=== PATIENT | male | born 1935 | race Caucasian/White ===

== ENCOUNTER 2021-08-28 20:45 | Inpatient (IN) | payer MEDICARE, OTHER ==
[~2021-08-28] VITALS: Ht 180.3 cm; Wt 90.7 kg
--- NOTE | 2021-08-28 21:34 | NUR ---
PATIENT COORDINATOR FRONT DESK AT PT'S BEDSIDE
--- NOTE | 2021-08-28 21:50 | NUR ---
ANGELIQUE FROM A BOARD AND CARE. TO ER BED 10. PT IS AAOX3, NOT IN RESP DISTRESS. BROUGHT IN FOR BEING AGITATED. INCREASE IN CONFUSION AND REFUSING CARE. PT IS SENT TO GPS ADMISSION. PT IS MEDICAL CLEARANCE AND PSYCH EVAL. URINE COLLECTED AND SENT TO LAB.
[2021-08-28 22:10] LABS: HEMATOCRIT 33 % (39-51); HEMOGLOBIN 10.4 g/dL (13.5-17.5); LYMPHOCYTES # (AUTO) 1.3 K/uL (0.8-4.8); MEAN CORPUSCULAR HGB CONC 32 g/dl (31.0-36.0); MEAN CORPUSCULAR VOLUME 84 fL (80-96); MONOCYTES # (AUTO) 0.6 K/uL (0.1-1.30); MONOCYTES % (AUTO) 6.3 % (2.0-12.0); NEUTROPHILS # (AUTO) 8.1 K/uL (1.8-8.9); NEUTROPHILS % (AUTO) 80.7 % (43.0-81.0); PLATELET COUNT (AUTO) 181 K/uL (150-450); RED BLOOD CELL COUNT(AUTO) 3.89 MIL/uL (4.5-6.0); WHITE BLOOD COUNT (AUTO) 10.1 K/uL (4.3-11.0)
[2021-08-28 22:29] LABS: BILIRUBIN,URINE NEGATIVE (NEGATIVE); COLOR,URINE YELLOW (YELLOW); LEUKOCYTE ESTERASE ,URINE NEGATIVE (NEGATIVE); NITRITE, URINE NEGATIVE (NEGATIVE); PH,URINE 5.5 (5.0-8.0); PROTEIN,URINE NEGATIVE (NEGATIVE); UGLUCOSE >=1000 mg/dL (NEGATIVE); UROBILINOGEN,URINE 0.2 EU/dL (0.2)
[2021-08-28 22:46] LABS: BACTERIA,URINE Rare /HPF (None Seen); RBC,URINE NONE SEEN /HPF (0-2); WBC,URINE NONE SEEN /HPF (0-3)
[2021-08-28 22:47] LABS: SQUAMOUS EPITHELIAL CELL,UR None Seen /HPF (None Seen)
--- NOTE | 2021-08-28 22:52 | NUR ---
PHARMACY STOCK CLERK AT PT'S BEDSIDE
--- NOTE | 2021-08-28 23:02 | NUR ---
COVID ANTIGEN SWAB COLLECTED AND SENT TO LAB
[2021-08-28 23:47] LABS: ALANINE AMINOTRANSFERASE 18 U/L (12-78); ALBUMIN 2.9 g/dL (3.4-5.0); ALCOHOL, BLOOD < 3 mg/dL (0-0); ALKALINE PHOSPHATASE 72 U/L (46-116); ASPARTATE AMINOTRANSFERASE 4 U/L (15-37); BILIRUBIN,DIRECT 0.1 mg/dL (0.0-0.2); BILIRUBIN,TOTAL 0.2 mg/dL (0.2-1.0); CARBON DIOXIDE 28 mmol/L (21-32); CHLORIDE 105 mmol/L (98-107); CREATININE 1.2 mg/dL (0.6-1.3); GLUCOSE 205 mg/dL (74-106); POTASSIUM 4.8 mmol/L (3.5-5.1); SODIUM SERUM 137 mmol/L (136-145); UREA NITROGEN, BLOOD 43 mg/dL (7-18)
[2021-08-29 00:09] LABS: ACETAMINOPHEN < 2 ug/ml (10-30)
--- NOTE | 2021-08-29 00:41 | NUR ---
PT SEEN BY ART CRISIS TEAM
[2021-08-29 01:43] LABS: CALCIUM, SERUM 8.8 mg/dL (8.5-10.1)
--- NOTE | 2021-08-29 03:05 | NUR ---
REPORT GIVEN TO BAMBI CANCINO RN FOR RUBÉN
[2021-08-29] MEDS ORDERED: PANT40TA49 PO (03:19)
[2021-08-29] MEDS ORDERED: ATOR40TA PO (03:19)
[2021-08-29] MEDS ORDERED: DOCU100C36 PO (03:19)
[2021-08-29] MEDS ORDERED: PRED20TA PO (03:19)
[2021-08-29] MEDS ORDERED: ACET325C7 PO (03:19)
[2021-08-29] MEDS ORDERED: ASPI-1169 PO (03:19)
[2021-08-29] MEDS ORDERED: APIX5TAB PO (03:19)
[2021-08-29] MEDS ORDERED: INSU100V39 SQ (03:19)
[2021-08-29] MEDS ORDERED: IPRA0.2S49 IH (03:19)
[2021-08-29] MEDS ORDERED: BUDE0.5A4 IH (03:19)
[2021-08-29] MEDS ORDERED: ALBU2.5V13 IH (03:19)
--- NOTE | 2021-08-29 04:11 | NUR ---
PT TRANSFERRED TO GPS 213 VIA HOSPITAL PROTOCOL. ALL BELONGINGS GIVEN TO GPS RN
--- NOTE | 2021-08-29 04:15 | NUR ---
GPS ADMISSION NOTE, RECEIVED PATIENT FROM [facility] / [facility]. PATIENT ARRIVED ON THIS UNIT AT 0415 VIA STRETCHER WITH 1 RN ESCORT. PATIENT ADMITTED ON A 5150 HOLD FOR GD. PER HOLD PATIENT WAS BROUGHT IN TO OUR E.R. FROM [facility] DUE TO AGGRESSIVE AND COMBATIVE BEHAVIOR. PATIENT HAS BEEN NON COMPLIANT WITH CARE. PATIENT IS DISORIENTED, DISORGANIZED, CONFUSED, AND HAS POOR IMPULSE CONTROL. PATIENT IS UNABLE TO PROVIDE FOR HIS FOOD, PRISON, OR CLOTHING DUE TO A MENTAL DISORDER. [facility] IS UNABLE TO PROVIDE THE SAME DUE TO HIS BEHAVIOR. THE 5150 WAS REVIEWED AND THE DOCUMENTATION IN THE 5150 HOLD APPEARS TO REFLECT THE PRESENTATION OF THE PATIENT. UPON FACE TO FACE ASSESSMENT PATIENT IS NOTED TO BEING, CONFUSED, DISHEVELED, DISORGANIZED, COOPERATIVE, AND NEEDS REDIRECTION. PATIENT IS CURRENTLY LYING IN BED AWAKE, HAS NO S/S OR COMPLAINTS OF PAIN. PATIENT IS DISPLAYING NO S/S OF APPARENT DISTRESS. PATIENT BREATHING IS UNLABORED WITH EQUAL RISE AND FALL OF THE CHEST. PATIENT IS ALERT AND ORIENTATED X 1-2 ON ROOM AIR. PATIENT ASSISTED WITH TURING AND REPOSITIONING Q2HR AND PRN FOR COMFORT AND CIRCULATION. PATIENT HAS NO NEEDS AT THIS TIME. PATIENT DENIES SUICIDE IDEATIONS AND HOMICIDAL IDEATIONS AT THIS TIME. PATIENT REFUSED TO SIGNS ANY PAPER WORK AND THINKS THIS IS ALL A MISTAKE. PATIENT ADVISED OF HIS HOLD AND PATIENT RIGHTS BOOKLET GIVEN. PATIENT IS UNDER THE PSYCHIATRIC CARE OF DR. MCKEON AND THE MEDICAL CARE OF DR JACOBO. PATIENT BELONGINGS WERE INVENTORIED AND CHECKED FOR CONTRABAND. ALL CONTRABAND REMOVED AND STORED IN PATIENT HALLWAY LOCKER. PATIENT ADVANCED DIRECTIVES PREFERENCE, IMMUNIZATIONS QUESTIONER, NECESSARY PAPERWORK COMPLETED. PATIENT REFUSED SKIN ASSESSMENT. PATIENT ORIENTATED TO ROOM, FLOOR, AND STAFF WITH ALL QUESTIONS ANSWERED. PATIENT EDUCATED ON THE USE OF THE CALL HAMMONDS. PATIENT BED SIDE RAILS ARE UP X 2 FOR SAFETY. PATIENT BED IS LOCKED, LOW AND I WILL CONTINUE TO MONITOR THIS PATIENT Q 15 MIN WITH THE HELP OF STAFF TO MAINTAIN SAFETY.
[2021-08-29] MEDS ORDERED: LORAZEPAM 0.5 MG TABLET PO PRN (04:30)
[2021-08-29] MEDS ORDERED: ACETAMINOPHEN 325 MG TABLET PO PRN (04:30)
[2021-08-29] MEDS ORDERED: MAG HYDROX/AL HYDROX/SIMETH 30 ML UDC PO PRN (04:30)
[2021-08-29] MEDS ORDERED: MAGNESIUM HYDROXIDE 30 ML UDC PO PRN (04:30)
--- NOTE | 2021-08-29 04:46 | NUR ---
GPS RN NOTE, PATIENT NEEDS A MEDICATION RECONCILIATION AND AN ACCU CHECK ORDER. PAGED [facility] AND INFORMED CASSIDY JACOBO DNP OF MY FINDINGS. CASSIDY JACOBO DNP SAID SHE WILL DO THE MED RECON AND ACCU CHECK ORDER WHEN SHE HAS A MOMENT. ALL ORDERS NOTED AND CARRIED OUT. WILL CONTINUE TO MONITOR THIS PATIENT WITH THE HELP OF STAFF.
[2021-08-29 04:54] VITALS: BP 149/80
[2021-08-29] MEDS ORDERED: BLOOD SUGAR DIAGNOSTIC 1 EACH STRIP IN ONE (05:00)
[2021-08-29 05:42] VITALS: BP 149/80
--- NOTE | 2021-08-29 06:41 | NUR ---
GPS RN NOTE, ATTEMPTED TO NOTIFY AND LEFT MESSAGE FOR MARJORIE CHONG [phone] TO CALL BACK. MARJORIE CHONG IS PATIENT SPOUSE AND PERSON TO BE NOTIFIED OF ADMISSION. WILL CONTINUE TO MONITOR PATIENT WITH THE HELP OF STAFF.
[2021-08-29] MEDS ORDERED: BLOOD SUGAR DIAGNOSTIC 1 EACH STRIP IN SCH ×3 (07:30→15:00)
[2021-08-29 08:00] VITALS: BP 144/68
[2021-08-29] MEDS: BLOOD SUGAR DIAGNOSTIC 1 EACH STRIP IN SCH ×4 (08:00→22:05)
[2021-08-29] MEDS ORDERED: DEXTROSE 50%-WATER 50 ML DISP.SYRIN IV PRN ×2 (09:30→15:00)
--- NOTE | 2021-08-29 09:42 | NUR ---
RN-NOTES ACCU CHECK WAS DONE EARLIER.
[2021-08-29] MEDS: INSULIN REGULAR, HUMAN 100 UNIT/ML 3 ML VIAL SQ PRN ×2 (09:58→13:53)
--- NOTE | 2021-08-29 10:41 | NUR ---
HOWIE Initial Discharge Plan: Patient currently resides at [facility] located at [address] [place] [address]; ([phone]). Pt would want to return back. Pt does not have any supportive contact at this time. HOWIE will work with the MD and treatment team to help coordinate appropriate discharge.
--- NOTE | 2021-08-29 10:42 | NUR ---
SW Family Contact: Pt does not have any supportive contact at this time.
--- NOTE | 2021-08-29 10:54 | NUR ---
SNF Contact: SW contacted [facility] ([phone]) and spoke with Kylah ([phone]) who stated that pt will be discharged to their sister facility [facility].
[2021-08-29] MEDS ORDERED: DOCUSATE SODIUM 100 MG CAPSULE PO SCH (15:00)
[2021-08-29] MEDS ORDERED: INSULIN REGULAR, HUMAN 100 UNIT/ML 3 ML VIAL SQ PRN (15:00)
[2021-08-29 16:00] VITALS: BP 120/61
[2021-08-29] MEDS: APIXABAN 5 MG TABLET PO SCH (17:33)
[2021-08-29 20:08] VITALS: BP 136/77
[2021-08-29] MEDS: ATORVASTATIN 40 MG TABLET PO SCH (22:31)
[2021-08-29] MEDS: DIVALPROEX SODIUM 250 MG TABLET.DR PO SCH (22:31)
[2021-08-29] MEDS: RIVASTIGMINE TARTRATE 1.5 MG CAPSULE PO SCH (22:31)
[2021-08-29] MEDS: TEMAZEPAM 7.5 MG CAPSULE PO PRN (22:56)
--- NOTE | 2021-08-29 22:57 | NUR ---
GPS RN NOTES: PATIENT REQUESTED FOR SLEEP MEDICATION. RESTORIL 7.5MG ADMINISTERED AT 2256. WILL CONTINUE TO MONITOR.
[2021-08-30] MEDS: BLOOD SUGAR DIAGNOSTIC 1 EACH STRIP IN SCH ×4 (07:45→21:33)
[2021-08-30 07:57] LABS: BASOPHILS % (AUTO) 0.4 % (0.0-2.0); EOSINOPHILS % (AUTO) 2.5 % (0.0-6.0); HEMATOCRIT 34 % (39-51); HEMOGLOBIN 10.8 g/dL (13.5-17.5); LYMPHOCYTES # (AUTO) 1.9 K/uL (0.8-4.8); LYMPHOCYTES % (AUTO) 25.9 % (20.0-44.0); MEAN CORPUSCULAR HGB CONC 32 g/dl (31.0-36.0); MEAN CORPUSCULAR VOLUME 83 fL (80-96); MONOCYTES # (AUTO) 0.5 K/uL (0.1-1.30); MONOCYTES % (AUTO) 7.1 % (2.0-12.0); NEUTROPHILS # (AUTO) 4.7 K/uL (1.8-8.9); NEUTROPHILS % (AUTO) 64.1 % (43.0-81.0); PLATELET COUNT (AUTO) 195 K/uL (150-450); RED BLOOD CELL COUNT(AUTO) 4.05 MIL/uL (4.5-6.0); WHITE BLOOD COUNT (AUTO) 7.3 K/uL (4.3-11.0)
[2021-08-30] MEDS: BUDESONIDE RESPULE INH 0.5 MG/2 ML AMPUL.NEB IH SCH ×2 (07:58→20:08)
[2021-08-30 08:00] VITALS: BP 121/66
[2021-08-30] MEDS: INSULIN REGULAR, HUMAN 100 UNIT/ML 3 ML VIAL SQ PRN ×4 (08:48→21:40)
[2021-08-30] MEDS: PANTOPRAZOLE 40 MG TABLET.DR PO SCH (09:03)
[2021-08-30] MEDS: ASPIRIN 81 MG TAB.CHEW PO SCH (09:04)
[2021-08-30] MEDS: DIVALPROEX SODIUM 250 MG TABLET.DR PO SCH ×2 (09:09→21:34)
[2021-08-30] MEDS: predniSONE 20 MG TABLET PO SCH (09:10)
[2021-08-30] MEDS: APIXABAN 5 MG TABLET PO SCH ×2 (09:11→17:02)
[2021-08-30] MEDS: RIVASTIGMINE TARTRATE 1.5 MG CAPSULE PO SCH ×2 (10:33→21:34)
[2021-08-30] MEDS: IPRATROPIUM NEB FS 0.5 MG/2.5 ML AMPUL.NEB IH SCH (11:41)
[2021-08-30] MEDS: ALBUTEROL FS 2.5 MG/0.5 ML VIAL.NEB IH SCH (11:42)
[2021-08-30 12:28] LABS: CALCIUM, SERUM 8.5 mg/dL (8.5-10.1); CREATININE 0.9 mg/dL (0.6-1.3); POTASSIUM 4.4 mmol/L (3.5-5.1)
[2021-08-30 16:00] VITALS: BP 111/91
--- NOTE | 2021-08-30 19:30 | NUR ---
GPS RN NOTE, RECEIVED PATIENT AWAKE AND IN BED, NO S/S OR COMPLAINTS OF PAIN AT THIS TIME. PATIENT IS DISPLAYING NO S/S OF APPARENT DISTRESS AT THIS TIME. PATIENT BREATHING IS UNLABORED WITH EQUAL RISE AND FALL OF THE CHEST. PATIENT IS ALERT AND ORIENTED X 1-2 ON ROOM AIR WITH A SPO2 95%. PATIENT IS COMPLIANT WITH MEDICATIONS, CALM, MAKES NEEDS KNOWN, AND COOPERATIVE. PATIENT DENIES SUICIDAL AND HOMICIDAL IDEATIONS AT THIS TIME. PATIENT ASSISTED WITH TURNING AND REPOSITIONING Q2HR AND PRN FOR COMFORT AND CIRCULATION. PATIENT HAS NO NEEDS AT THIS TIME. PATIENT EDUCATED ON THE USE OF THE CALL HAMMONDS. PATIENT BED SIDE RAILS UP X 2 FOR SAFETY. PATIENT BED IS LOCKED, LOW, WITH BED ALARM ON. WILL CONTINUE TO MONITOR THIS PATIENT Q15 MINUTES WITH THE HELP OF STAFF TO MAINTAIN SAFETY.
[2021-08-30 20:00] VITALS: BP 134/83
--- NOTE | 2021-08-30 21:32 | NUR ---
GPS RN NOTE, PERFORMED ACCU CHECK ON PATIENT WITH A BLOOD SUGAR RESULT OF 211. GAVE 4 UNITS OF REGULAR INSULIN PER SLIDING SCALE. GAVE SNAKE AND MILK. WILL CONTINUE TO MONITOR THIS PATIENT WITH THE HELP OF STAFF.
[2021-08-30] MEDS: ATORVASTATIN 40 MG TABLET PO SCH (21:34)
[2021-08-30] MEDS: TEMAZEPAM 7.5 MG CAPSULE PO PRN (23:15)
--- NOTE | 2021-08-30 23:15 | NUR ---
GPS RN NOTE, PATIENT HAS A COMPLAINT OF NOT BEING ABLE TO SLEEP AND IS REQUESTING RESTORIL AT THIS TIME. PATIENT VITAL SIGNS ARE STABLE. GAVE RESTORIL 7.5MG PO HS PRN ORDERED. WILL REASSESS FOR INSOMNIA AND I WILL CONTINUE TO MONITOR THIS PATIENT WITH THE HELP OF STAFF.
[2021-08-31] MEDS: BUDESONIDE RESPULE INH 0.5 MG/2 ML AMPUL.NEB IH SCH ×2 (07:39→20:18)
[2021-08-31] MEDS: ALBUTEROL FS 2.5 MG/0.5 ML VIAL.NEB IH SCH (07:39)
[2021-08-31] MEDS: IPRATROPIUM NEB FS 0.5 MG/2.5 ML AMPUL.NEB IH SCH (07:39)
[2021-08-31 08:00] VITALS: BP 149/79
[2021-08-31] MEDS: BLOOD SUGAR DIAGNOSTIC 1 EACH STRIP IN SCH ×4 (08:03→21:00)
[2021-08-31] MEDS: INSULIN REGULAR, HUMAN 100 UNIT/ML 3 ML VIAL SQ PRN ×4 (08:05→21:09)
[2021-08-31] MEDS: predniSONE 20 MG TABLET PO SCH (08:06)
[2021-08-31] MEDS: ASPIRIN 81 MG TAB.CHEW PO SCH (08:07)
[2021-08-31] MEDS: DIVALPROEX SODIUM 250 MG TABLET.DR PO SCH ×2 (08:07→20:56)
[2021-08-31] MEDS: PANTOPRAZOLE 40 MG TABLET.DR PO SCH (08:08)
[2021-08-31] MEDS: APIXABAN 5 MG TABLET PO SCH ×2 (08:08→16:55)
--- NOTE | 2021-08-31 10:04 | NUR ---
rn-co: tried to contact family member/responsible green party but in the pt the phone number in [phone]. Pt cannot recall any responsible green party.
[2021-08-31] MEDS: RIVASTIGMINE TARTRATE 1.5 MG CAPSULE PO SCH ×2 (10:13→21:00)
[2021-08-31 16:00] VITALS: BP 126/64
[2021-08-31 19:51] VITALS: BP 136/68
[2021-08-31] MEDS: ATORVASTATIN 40 MG TABLET PO SCH (21:00)
[2021-09-01] MEDS: TEMAZEPAM 7.5 MG CAPSULE PO PRN ×2 (00:59→22:14)
--- NOTE | 2021-09-01 01:05 | NUR ---
GPS RN NOTES PATIENT REFUSED SCHEDULED BREATHING TX WITH RT EARLIER TODAY BUT CURRENTLY REQUESTING A BREATHING TX NOW DUE TO SLIGHT SOB; PAGED RT, CHARGE NURSE AWARE; AWAITING RT ARRIVAL TO UNIT FOR ADMINISTRATION OF BREATHING TX, WILL CONT TO MONITOR
[2021-09-01] MEDS: ALBUTEROL FS 2.5 MG/0.5 ML VIAL.NEB IH SCH ×2 (01:20→22:07)
[2021-09-01] MEDS: BLOOD SUGAR DIAGNOSTIC 1 EACH STRIP IN SCH ×4 (07:43→21:21)
[2021-09-01 08:00] VITALS: BP 152/69
[2021-09-01] MEDS: BUDESONIDE RESPULE INH 0.5 MG/2 ML AMPUL.NEB IH SCH ×2 (09:00→21:48)
--- NOTE | 2021-09-01 09:01 | NUR ---
SNF Referral: HOWIE sent clinicals to Elijah from [facility] ([phone]) for placement option. HOWIE sent H & P, progress notes, and medication list.
[2021-09-01] MEDS: RIVASTIGMINE TARTRATE 1.5 MG CAPSULE PO SCH ×2 (09:21→21:22)
[2021-09-01] MEDS: PANTOPRAZOLE 40 MG TABLET.DR PO SCH (09:21)
[2021-09-01] MEDS: DIVALPROEX SODIUM 250 MG TABLET.DR PO SCH ×2 (09:21→21:14)
[2021-09-01] MEDS: predniSONE 20 MG TABLET PO SCH (09:22)
[2021-09-01] MEDS: ASPIRIN 81 MG TAB.CHEW PO SCH (09:22)
[2021-09-01] MEDS: APIXABAN 5 MG TABLET PO SCH ×2 (09:24→16:34)
[2021-09-01] MEDS: INSULIN REGULAR, HUMAN 100 UNIT/ML 3 ML VIAL SQ PRN ×3 (11:58→21:34)
[2021-09-01 16:00] VITALS: BP 138/62
[2021-09-01 20:20] VITALS: BP 149/82
[2021-09-01 20:36] VITALS: BP 164/85
[2021-09-01] MEDS: ATORVASTATIN 40 MG TABLET PO SCH (21:15)
--- NOTE | 2021-09-01 21:34 | NUR ---
PATIENT'S BLOOD GLUCOSE LEVEL IS 230 MG/DL, 4 UNITS PER SLIDING SCALE PROTOCOL GIVEN. PATIENT HAD SNACK AND TOLERATED WELL. WILL CONTINUE TO MONITOR.
--- NOTE | 2021-09-01 21:38 | NUR ---
PATIENT HAS BREATHING TREATMENT DUE AT 2100, PATIENT IS AWAKE AND WANTS BREATHING TX. CALLED RT AND INFORMED ELLIE.
--- NOTE | 2021-09-01 21:52 | NUR ---
RT IS AT BEDSIDE TO GIVE BREATHING TREATMENT.
[2021-09-01] MEDS: IPRATROPIUM NEB FS 0.5 MG/2.5 ML AMPUL.NEB IH SCH (22:07)
--- NOTE | 2021-09-01 22:16 | NUR ---
GPS RN NOTE: INSOMNIA PATIENT VERBALIZED INABILITY TO SLEEP AND REQUESTED TO TAKE SLEEPING MEDICINE. PRN RESTORIL 7.5 MG 1 CAP PO ADMINISTERED. WILL CONTINUE TO MONITOR.
[2021-09-02] MEDS: BLOOD SUGAR DIAGNOSTIC 1 EACH STRIP IN SCH ×4 (07:03→21:27)
[2021-09-02] MEDS: INSULIN REGULAR, HUMAN 100 UNIT/ML 3 ML VIAL SQ PRN ×4 (07:39→21:43)
[2021-09-02 08:00] VITALS: BP 154/70
[2021-09-02] MEDS: PANTOPRAZOLE 40 MG TABLET.DR PO SCH (08:32)
[2021-09-02] MEDS: ASPIRIN 81 MG TAB.CHEW PO SCH (08:32)
[2021-09-02] MEDS: DIVALPROEX SODIUM 250 MG TABLET.DR PO SCH ×2 (08:32→21:19)
[2021-09-02] MEDS: APIXABAN 5 MG TABLET PO SCH ×2 (08:32→16:39)
[2021-09-02] MEDS: RIVASTIGMINE TARTRATE 1.5 MG CAPSULE PO SCH ×2 (09:36→21:27)
[2021-09-02] MEDS: predniSONE 20 MG TABLET PO SCH (09:36)
[2021-09-02] MEDS: BUDESONIDE RESPULE INH 0.5 MG/2 ML AMPUL.NEB IH SCH ×2 (09:56→20:23)
[2021-09-02 16:00] VITALS: BP 137/59
[2021-09-02 19:56] VITALS: BP 153/81
[2021-09-02] MEDS: ALBUTEROL FS 2.5 MG/0.5 ML VIAL.NEB IH SCH (20:24)
[2021-09-02] MEDS: ATORVASTATIN 40 MG TABLET PO SCH (21:27)
[2021-09-02] MEDS: TEMAZEPAM 7.5 MG CAPSULE PO PRN (22:02)
[2021-09-03] MEDS: INSULIN REGULAR, HUMAN 100 UNIT/ML 3 ML VIAL SQ PRN ×4 (07:54→21:36)
[2021-09-03] MEDS: BLOOD SUGAR DIAGNOSTIC 1 EACH STRIP IN SCH ×4 (07:55→21:29)
[2021-09-03 08:00] VITALS: BP 141/90
--- NOTE | 2021-09-03 08:43 | NUR ---
Court Hearing Notification: Pt does not have any supportive contact to notify for 5250 hearing.
[2021-09-03] MEDS: IPRATROPIUM NEB FS 0.5 MG/2.5 ML AMPUL.NEB IH SCH (08:52)
[2021-09-03] MEDS: BUDESONIDE RESPULE INH 0.5 MG/2 ML AMPUL.NEB IH SCH ×2 (08:52→21:12)
[2021-09-03] MEDS: ALBUTEROL FS 2.5 MG/0.5 ML VIAL.NEB IH SCH (08:52)
[2021-09-03] MEDS: APIXABAN 5 MG TABLET PO SCH ×2 (09:40→16:51)
[2021-09-03] MEDS: PANTOPRAZOLE 40 MG TABLET.DR PO SCH (09:40)
[2021-09-03] MEDS: DIVALPROEX SODIUM 250 MG TABLET.DR PO SCH ×2 (09:40→21:44)
[2021-09-03] MEDS: RIVASTIGMINE TARTRATE 1.5 MG CAPSULE PO SCH ×2 (09:41→21:43)
[2021-09-03] MEDS: predniSONE 20 MG TABLET PO SCH (09:41)
[2021-09-03] MEDS: ASPIRIN 81 MG TAB.CHEW PO SCH (09:41)
--- NOTE | 2021-09-03 10:58 | NUR ---
Court Hearing: Patient's court hearing for 0630 was today and it was upheld for GD.
[2021-09-03 16:00] VITALS: BP 145/78
[2021-09-03 20:17] VITALS: BP 137/77
[2021-09-03] MEDS: TEMAZEPAM 7.5 MG CAPSULE PO PRN (21:44)
[2021-09-03] MEDS: ATORVASTATIN 40 MG TABLET PO SCH (21:44)
[2021-09-04 08:00] VITALS: BP 161/92
[2021-09-04] MEDS: BLOOD SUGAR DIAGNOSTIC 1 EACH STRIP IN SCH ×4 (08:01→21:28)
[2021-09-04] MEDS: BUDESONIDE RESPULE INH 0.5 MG/2 ML AMPUL.NEB IH SCH ×2 (08:23→20:30)
--- NOTE | 2021-09-04 08:52 | NUR ---
SNF Contact: HOWIE received a call from Elijah from [facility] ([phone]) who stated pt is accepted.
--- NOTE | 2021-09-04 08:54 | NUR ---
SW Note: SW expressed to pt that he cannot go to [facility] because they are unable to provide his care. SW expressed that he is accepted at [facility], agreeable to going there. He did not want to go to sister facility of [facility] called [facility].
[2021-09-04] MEDS: PANTOPRAZOLE 40 MG TABLET.DR PO SCH (09:08)
[2021-09-04] MEDS: RIVASTIGMINE TARTRATE 1.5 MG CAPSULE PO SCH ×2 (09:08→21:34)
[2021-09-04] MEDS: ASPIRIN 81 MG TAB.CHEW PO SCH (09:08)
[2021-09-04] MEDS: predniSONE 20 MG TABLET PO SCH (09:08)
[2021-09-04] MEDS: DIVALPROEX SODIUM 250 MG TABLET.DR PO SCH ×2 (09:08→21:34)
[2021-09-04] MEDS: APIXABAN 5 MG TABLET PO SCH ×2 (09:09→17:12)
[2021-09-04] MEDS: INSULIN REGULAR, HUMAN 100 UNIT/ML 3 ML VIAL SQ PRN ×3 (13:12→21:30)
[2021-09-04 16:00] VITALS: BP 149/59
[2021-09-04 20:00] VITALS: BP 151/89
[2021-09-04 20:43] VITALS: BP 151/89
[2021-09-04] MEDS: ATORVASTATIN 40 MG TABLET PO SCH (21:34)
[2021-09-04] MEDS: TEMAZEPAM 7.5 MG CAPSULE PO PRN (21:38)
--- NOTE | 2021-09-05 03:45 | NUR ---
RN NOTES: He is alert and orientated X3 at times forgetful. Use the urinal thru the night. Mediicine compliant swallows w/o a problem. Went to bed @ 10 PM slept thru the night. He will smile and enjots conversation. Phone given to him and he called his wifr and spoke to her on the phone, happy and friendly.
[2021-09-05] MEDS: BLOOD SUGAR DIAGNOSTIC 1 EACH STRIP IN SCH ×2 (07:56→11:23)
[2021-09-05] MEDS: INSULIN REGULAR, HUMAN 100 UNIT/ML 3 ML VIAL SQ PRN ×2 (07:57→11:47)
[2021-09-05 08:00] VITALS: BP 149/80
--- NOTE | 2021-09-05 08:12 | NUR ---
SW Discharge Note: Patient will be discharged to a [facility] located at [address] [place] [address]; ([phone]) Please arrange ambulance transportation. Rn Advanced spoke with Dariel, Professional [employer] at [facility] ([phone]) stated patient will be accepted at facility today. Patient is alert and oriented x2, and is not able to plan for self-care at this time, but is willing to accept care provided at the facility. Patient denies any suicidal or homicidal ideations. Patient is aware and agreeable with discharge plans. Patient does not have any supportive contact at this time. Patient will continue to follow-up with her (Psychiatrist) located at [address], [place] [address]; ([phone]) and (Change Director) Dr. Sanchez [address], [place] [address]; ([phone]). Patient presents with euthymic mood and congruent affect.
[2021-09-05] MEDS: ASPIRIN 81 MG TAB.CHEW PO SCH (08:43)
[2021-09-05] MEDS: predniSONE 20 MG TABLET PO SCH (08:43)
[2021-09-05] MEDS: APIXABAN 5 MG TABLET PO SCH (08:43)
[2021-09-05] MEDS: BUDESONIDE RESPULE INH 0.5 MG/2 ML AMPUL.NEB IH SCH (08:44)
[2021-09-05] MEDS: DIVALPROEX SODIUM 250 MG TABLET.DR PO SCH (08:44)
[2021-09-05] MEDS: PANTOPRAZOLE 40 MG TABLET.DR PO SCH (08:44)
[2021-09-05] MEDS: RIVASTIGMINE TARTRATE 1.5 MG CAPSULE PO SCH (09:27)
--- NOTE | 2021-09-05 13:27 | NUR ---
RN NOTES SPOKE W/ BASIL, RN SANITATION TRUCK CLEANER AT [facility] ([phone]), PROVIDED DISCHARGE EDUCATION/INSTRUCTIONS. PATIENT IS A/O X1, CONFUSED, REORIENTED APPLICABLE. AMBULATES W/ STEADY GAIT USING FWW, PROVIDED SBA. DENIES SI/HI AND VISUAL/AUDITORY HALLUCINATION. POST DISCHARGE FOLLOW-UP ALREADY ARRANGED.
[2021-09-05 16:02] VITALS: BP 153/86
--- NOTE | 2021-09-05 16:40 | NUR ---
GPS GATEKEEPER NOTES PATIENT DISCHARGED TO [facility]; REPORT GIVEN TO BASIL. PATIENT REFUSED TO SIGN DISCHARGE PAPERS AND BELONGINGS LIST. FORMS SIGNED BY ME AND ANOTHER RN VIKI. ALL BELONGINGS ACCOUNTED FOR. PATIENT REFUSED SKIN ASSESSMENT WELL. PATIENT IS A/O X1, EPISODE OF CONFUSION BUT ABLE TO BE REORIENTED. DENIES SI/HI AND VISUAL/AUDITORY HALLUCINATION. AMBULATES W/ FWW. BEDSIDE ENDORSEMENT DONE W/ EMT. PICKED UP VIA GURNEY. CHARGE NURSE AND MD AWARE OF DISCHARGE.
== END 2021-09-05 16:45 | DRG 885 ==
LOC: ER 20:51 → GPS 08-29 02:53
PROVIDERS: ADMIT Psychiatry & Neurology Psychiatry; ATTEND Nurse Practitioner Acute Care
DX: F39 Unspecified mood [affective] disorder (principal); I11.0 Hypertensive heart disease with heart failure; E11.65 Type 2 diabetes mellitus with hyperglycemia; I50.32 Chronic diastolic (congestive) heart failure; F29 Unspecified psychosis not due to a substance or known physiological condition; G30.9 Alzheimer's disease, unspecified; F02.80 Dementia in other diseases classified elsewhere, unspecified severity, without behavioral disturbance, psychotic disturbance, mood disturbance, and anxiety; Z20.822 Contact with and (suspected) exposure to COVID-19; D63.8 Anemia in other chronic diseases classified elsewhere; E78.5 Hyperlipidemia, unspecified; J44.9 Chronic obstructive pulmonary disease, unspecified; I25.10 Atherosclerotic heart disease of native coronary artery without angina pectoris; Z91.19 Patient's noncompliance with other medical treatment and regimen; Z96.652 Presence of left artificial knee joint; Z86.718 Personal history of other venous thrombosis and embolism; Z79.01 Long term (current) use of anticoagulants; Z79.4 Long term (current) use of insulin
CPT/HCPCS: 36415; 70450-TC; 71045-TC; 80048-TC; 80061-TC; 80076-TC; 81001; 82962-TC; 85025-TC; 87081-TC; 92526; 92611-TC; 97112-TC; 97116-TC; 97530-TC; C9803; G0480; J1815